=== PATIENT | female | born 1955 | race Caucasian/White ===

== ENCOUNTER 2019-08-19 15:15 | Outpatient (CLI) | payer OTHER ==
--- NOTE | 2019-08-19 16:36 | Mammography Report ---
Reason: SCREENING MAMMO Procedure Date: 08/19/2019 Accession Number: [id number] / [id number] Procedure: [facility] - Screening Mammo w/Charlie CPT Code: FULL RESULT: EXAM: Screening Mammo w/Charlie DATE: 08/19/2019 4:10 PM CLINICAL HISTORY: Routine screening. No reported personal or family history of breast cancer. TECHNIQUE: (B) - Bilateral CC and MLO views were obtained. COMPARISON: 12/02/2012 and 06/09/2010 PARENCHYMAL PATTERN: (A) - The breasts demonstrate scattered fibroglandular densities bilaterally. FINDINGS: Bilateral breasts: There are no suspicious masses, calcifications, or areas of distortion. IMPRESSION: Negative examination. BI-RADS category 1. RECOMMENDATION: (ANNUAL) - Recommend routine annual screening mammography. BI-RADS CATEGORY: (1) - Negative. STANDARD QUALIFYING STATEMENTS: 1. This examination was not reviewed with the aid of Computer-Aided Detection (CAD). 2. A negative or benign imaging report should not preclude biopsy if clinically suspicious findings are present. 3. Dense breasts may obscure an underlying neoplasm. 4. This examination was reviewed with the aid of 3D breast imaging (tomosynthesis).
== END 2019-08-19 15:16 | disposition home or self-care (01) ==
LOC: DI 15:15
PROVIDERS: ATTEND Physician Assistant
DX: Z12.31 Encounter for screening mammogram for malignant neoplasm of breast (principal)
CPT/HCPCS: 77063; 77067

== ENCOUNTER 2019-12-17 14:58 | Outpatient (CLI) | payer OTHER ==
--- NOTE | 2019-12-17 23:09 | Ultrasound Report ---
Reason: LUMP ON LT FINGER Procedure Date: 12/17/2019 Accession Number: [id number] / [id number] Procedure: US - Ext Limited Non Vascular CPT Code: Final Report FULL RESULT: EXAM: LEFT UPPER EXTREMITY ULTRASOUND - LIMITED. EXAM DATE: 12/17/2019 04:00 PM. CLINICAL HISTORY: Lump on left finger. COMPARISON: None. TECHNIQUE: Real-time scanning was performed with static images obtained. FINDINGS IMPRESSION: 1. At the patient reported area of the lump, there is an irregular cystic appearing abnormality with a somewhat horseshoe-shaped configuration, measuring 1.2 x 1.1 x 1.7 cm. No internal complexity evident. No internal blood flow. This is nonspecific and difficult to characterize. It may represent a seroma from prior trauma. RADIA
== END 2019-12-17 14:59 | disposition home or self-care (01) ==
LOC: DI 14:58
PROVIDERS: ATTEND Nurse Practitioner Family
DX: R22.32 Localized swelling, mass and lump, left upper limb (principal)
CPT/HCPCS: 76882

== ENCOUNTER 2024-02-11 08:06 | Outpatient (CLI) | payer MEDICARE ==
--- NOTE | 2024-02-11 09:12 | CT Report ---
PROCEDURE: Lung Cancer Screen INDICATIONS: HIST OF SMOKING TECHNIQUE: A CT scan of the chest was performed. Intravenous contrast media was not administered. Images were re corded and evaluated at appropriate window settings. Reformats: axial MIP of the chest, coronal and s agittal. For radiation dose reduction, the following was used: automated exposure control, adjustment of mA and/or kV according to patient size. COMPARISON: None. FINDINGS: Image quality: Excellent. Prior cancer history: Unsure. Lungs and pleura: No pleural effusions. No pneumothorax. No suspicious pulmonary nodules or consolid ation. Mediastinum: Heart size is normal. No pericardial effusion. No large vessel abnormality. No mediastin al adenopathy by size criteria. Minimal calcification of the thoracic aorta. No significant coronary vessel calcifications. Chest wall and lower neck: Thyroid is unremarkable. No axillary or supraclavicular adenopathy by size . Bones: No aggressive osseous abnormality. No acute fracture. Mild multilevel degenerative changes of the spine. Upper Abdomen: Unremarkable. IMPRESSION: No suspicious pulmonary nodules or consolidation. Lung RAD: 1 - Negative. Recommendation: Continue annual screening in 12 Months with LDCT Reviewed by: Brandee Robertson MD on 02/11/2024 9:11 AM PDT Approved by: Brandee Robertson MD on 02/11/2024 9:11 AM PDT Station ID: [id number]
== END 2024-02-11 08:07 | disposition home or self-care (01) ==
LOC: DI 08:06
PROVIDERS: ATTEND Registered Nurse
DX: Z12.2 Encounter for screening for malignant neoplasm of respiratory organs (principal); Z87.891 Personal history of nicotine dependence; M81.0 Age-related osteoporosis without current pathological fracture; Z78.0 Asymptomatic menopausal state

== ENCOUNTER 2024-02-11 08:06 | Outpatient (CLI) | payer MEDICARE ==
--- NOTE | 2024-02-11 09:06 | DEXA Report ---
PROCEDURE: Dexa Spine and/or Hip INDICATIONS: POST MENOPAUSAL TECHNIQUE: Dual energy x-ray absorptiometry (DXA) was performed on a [employer] System. Regions measur ed are the AP Spine, femoral neck, and if needed forearm. COMPARISON: Postmenopausal, history of nicotine use FINDINGS: Lumbar Spine: Bone Mineral Density: 0.858 g/cm/cm,T score: -2.7. Left Femoral Neck: Bone Mineral Density: 0.591 g/cm/cm, T score: -3.2. Left Hip: Bone Mineral Density: 0.648 g/cm/cm,T score: -2.9. (T score greater or equal to -1.0: NORMAL) (T score from -1.1 to -2.4: OSTEOPENIA) (T score less than or equal to -2.5 to: OSTEOPOROSIS) Impression: By WHO criteria, this patient has osteoporosis. Patients with diagnosis of osteoporosis or osteopenia should have regular bone mineral density assess ment. For those eligible for Medicare, routine testing is allowed once every 2 years. Testing frequ ency can be increased for patients who have rapidly progressing disease or for those who are receivin g medical therapy to restore bone mass. Reviewed by: Brandee Robertson MD on 02/11/2024 9:05 AM PDT Approved by: Brandee Robertson MD on 02/11/2024 9:05 AM PDT Station ID: [id number]
== END 2024-02-11 08:07 | disposition home or self-care (01) ==
LOC: DI 08:06
PROVIDERS: ATTEND Registered Nurse
DX: M81.0 Age-related osteoporosis without current pathological fracture (principal); Z78.0 Asymptomatic menopausal state